=== PATIENT | male | born 1975 | race Two or more races ===

== ENCOUNTER 2021-10-03 15:19 | Inpatient (IN) | payer MEDICAID ==
[~2021-10-03] VITALS: Ht 170.2 cm; Wt 81.6 kg
--- NOTE | 2021-10-03 14:45 | NUR ---
patient directly admitted from [facility]. patient is alert and oriented x4, bel[place] speaking, able to make needs known. patient admitted with dx of seizure, no seizure activity at this moment, no neuro deficit noted. patient able to ambulate onto bed, gait is steady. patient is on r/a rr even an non-labored, 0 sob noted at this time. lungs are clear bilateral. abdomen is soft and non-tender, no c/o urinary problems. patient is able to move bilateral upper and lower extremities without difficulty. v/s wnl, afebrile at this time. med reconciliation completed per patient he only takes lamictal 75mg bid. patient oriented onto unit, reminded to use call light for assistance.
[2021-10-03] MEDS ORDERED: LAMO25TA5 PO (15:43)
[2021-10-03] MEDS ORDERED: LORAZEPAM 2 MG/1 ML VIAL IV PRN (15:45)
[2021-10-03 16:11] VITALS: BP 115/72
[2021-10-03] MEDS ORDERED: MAGNESIUM HYDROXIDE 30 ML LIQUID UDC PO PRN (19:15)
[2021-10-03] MEDS ORDERED: ACETAMINOPHEN 325 MG TABLET PO PRN (19:15)
[2021-10-03] MEDS ORDERED: ZOLPIDEM 5 MG TABLET PO PRN (19:15)
[2021-10-03] MEDS ORDERED: ONDANSETRON 4 MG/2 ML VIAL IV PRN (19:15)
[2021-10-03] MEDS ORDERED: REMEDY ESSENTIAL ZINC PASTE 113 GM TP PRN (19:15)
--- NOTE | 2021-10-03 19:15 | NUR ---
Pt resting comfortably in bed with by beside. AOx4.Pt on RA. IV in L AC, intact and patent. Seizure precautions initiated. No signs of acute distress. Call light within reach. Safety measures initiated.
[2021-10-03 20:06] VITALS: BP 119/73
[2021-10-03] MEDS: LAMOTRIGINE 25 MG TABLET PO SCH (22:24)
[2021-10-04 04:06] VITALS: BP 121/70
--- NOTE | 2021-10-04 06:47 | NUR ---
Slept throughout the night. No signs of active seizure episode. On room air saturating at 98%. Pt able to ambulate to bathroom. Compliant with medication and care. Call lights within reach. Safety measures maintained.
[2021-10-04 06:55] LABS: HEMATOCRIT 41.7 % (36.7-47.1); MEAN CORPUSCULAR VOLUME 91.8 fL (73.0-96.2); PLATELET COUNT (AUTO) 209 K/uL (152-348)
[2021-10-04 07:05] LABS: CREATININE 0.8 mg/dL (0.6-1.3); MAGNESIUM 2.5 mg/dL (1.8-2.4); PHOSPHOROUS 3.6 mg/dL (2.5-4.9); POTASSIUM 3.6 mmol/L (3.5-5.1)
[2021-10-04] MEDS: LAMOTRIGINE 25 MG TABLET PO SCH (08:25)
[2021-10-04 11:21] VITALS: BP 129/75
--- NOTE | 2021-10-04 11:30 | NUR ---
new discharge order explained all discharge paperwork with patient, reminded patient to follow up with neurologist as soon as possible. continue taking current medication regimen. return to nearest ER or call 911 if symptoms worsen patient states understanding. IV site removed minimal bleeding noted. dressing applied.
--- NOTE | 2021-10-04 13:00 | NUR ---
patient assisted downstairs s/p discharge, upon discharge v/s wnl, gait is stable. Iv site removed dressing applied
== END 2021-10-04 13:00 | disposition home or self-care (01) | DRG 53 ==
LOC: TELE3 15:19 → MEDSURG3 15:39
PROVIDERS: ADMIT Nurse Practitioner Acute Care; ATTEND Nurse Practitioner Acute Care
DX: G40.909 Epilepsy, unspecified, not intractable, without status epilepticus (principal); D72.829 Elevated white blood cell count, unspecified; E66.9 Obesity, unspecified; E78.5 Hyperlipidemia, unspecified; E87.6 Hypokalemia; Z86.79 Personal history of other diseases of the circulatory system; Z68.28 Body mass index [BMI] 28.0-28.9, adult
CPT/HCPCS: 36415; 83735; 84100; 85025; G0378